=== PATIENT | male | born 2000 | race Caucasian/White ===

== ENCOUNTER 2022-05-16 20:23 | Inpatient (IN) ==
[2022-05-16 20:45] LABS: Basophils # (auto) 0.03 K/uL (0-0.2); Basophils % (auto) 0.4 %; Eosinophils # (auto) 0.05 K/uL (0-0.50); Eosinophils % (auto) 0.7 %; Hematocrit (blood only) 42.8 % (40.1-51.0); Hemoglobin 15.3 g/dl (14.0-18.0); Immature Granulocytes # (auto) 0.02 K/uL (0.00-0.02); Immature Granulocytes % (auto) 0.3 %; Lymphocytes # (auto) 2.75 K/uL (1.2-3.4); Lymphocytes % (auto) 37.5 %; Mean Corpuscular Hemoglobin 28.6 pg (25.0-34.0); Mean Corpuscular Hgb Conc 35.7 g/dL (32.0-36.0); Mean Platelet Volume 10.1 fL (9.4-12.4); Monocytes # (auto) 0.69 K/uL (0.24-0.82); Monocytes % (auto) 9.4 %; Neutrophils # (auto) 3.79 K/uL (1.4-6.5); Neutrophils % (auto) 51.7 %; Platelet Count 204 K/uL (130-400); RDW Coefficient of Variation 11.8 % (11.5-14.5); RDW Standard Deviation 33.9 fL (36.4-46.3); Red Blood Count 5.35 M/uL (4.63-6.08); White Blood Count 7.33 K/ul (4.8-10.8)
[2022-05-16 21:25] LABS: Albumin Globulin Ratio 1.9 (0.9-2); Albumin Level 4.9 gm/dl (3.4-5.0); BUN Creatinine Ratio 12.2 (10-20); Bilirubin,Total 1.2 mg/dl (0.2-1.0); Calcium 9.8 mg/dl (8.5-10.1); Creatinine Clr Calc Pharmacy 92.7 ml/min; Est GFR (African American) 103.4 ml/min; Est GFR (Non-African American) 89.2 ml/min; Globulin 2.6 gm/dl (2.5-4.0); Potassium 3.8 mmol/L (3.5-5.1); Total Protein 7.5 gm/dl (6.0-8.3)
--- NOTE | 2022-05-16 21:44 | Emergency Department Note ---
History of Present Illness General Chief complaint: Hyperglycemia Stated complaint: HIGH BLOOD SUGAR History of Present Illness This is a 21-year-old male presenting to the emergency department for evaluation of high blood sugar. The patient states that over the past 4 to 5 days he has had a tremendous amount of thirst and a large amount of urination compared to normal. The patient otherwise feels well, and mention this to his brother who is a type I diabetic. His brother was diagnosed at the age of 17 and does have a glucometer. Evidently this patient's glucose was greater than 600 on the glucometer, prompting his presentation to the ER. The patient is usually healthy and does not take medication on a regular basis. He did have some flulike symptoms about 2 weeks ago that seem to be improved. He does not have any lightheadedness, dizziness, chest pain, chest tightness, shortness of breath, or belly pain. Home Medications Medication Instructions Recorded Confirmed Type blood sugar diagnostic (OneTouch #100 ea 05/18/22 Rx Verio test strips) blood-glucose sensor (Dexcom G6 #3 ea 05/18/22 Rx Sensor device) blood-glucose transmitter (Dexcom #1 ea 05/18/22 Rx G6 Transmitter device) insulin aspart U-100 100 unit/mL 1 sliding scale dose subcut 05/18/22 Rx (3 mL) subcutaneous pen (Novolog USEASDIRECTD #15 mL Flexpen U-100 Insulin aspart) insulin glargine 100 unit/mL (3 20 unit (0.2 mL) subcut HS #15 mL 05/18/22 Rx mL) subcutaneous pen (Basaglar KwikPen U-100 Insulin) lancets 33 gauge (OneTouch Delica #100 ea 05/18/22 Rx Lancets) pen needle, diabetic 32 gauge x #100 ea 05/18/22 Rx 5/32" (Pen Needle) Allergies Allergy/AdvReac Type Severity Reaction Status Date / Time Fish Containing Products AdvReac Vomiting Verified 05/16/22 22:32 Past Med/Surg History Medical History Diabetes Surgical History No significant past surgical history Social History Smoking Status: Never smoker Hx Alcohol Use: Yes Hx Substance Use: No Preferred Language: Albanian Communication Ability: Effective Credit Card Analyst Required: No Beliefs That Will Affect Care: Adventist Adventist Beliefs: Religion- no blood transfusion Current Living Situation: Spouse Other Information That Helps Us Care for You: No Feels Safe at Home: Yes Safety Concerns: Feels Safe At This Time Assistive Devices: None Review of Systems A total of 10 systems reviewed and were otherwise negative Physical Exam Vital Signs Vital Signs - 24 hr 05/16/22 23:00 Pulse Rate [Finger] 78 Respiratory Rate 19 Respiratory Effort / Characteristics Non-Labored Spontaneous Respiratory Depth Normal Respiratory Pattern Regular Blood Pressure [Right Arm] 128/72 Blood Pressure Mean [Right Arm] 90 Pulse Oximetry 99 Oxygen Delivery Method Room Air VITALS: Vitals are noted on the nurse's note and reviewed by myself. Vital signs stable. GENERAL: Well-developed, well-nourished, white male, who is in no acute distress and resting comfortably. Patient is cooperative with the examination. HEAD: Normocephalic atraumatic. EARS: External ear normal. External auditory canals clear, tympanic membranes pearly graham without erythema or effusion bilaterally. EYES: Pupils equal round and reactive to light and accommodation. Conjunctivae without injection, sclerae without icterus. Extraocular movements intact. NOSE: Patent, turbinates without inflammation or discharge. MOUTH: Mucous membranes moist. Tonsils are not enlarged. Pharynx without erythema, blood, or exudate. Uvula midline. Airway patent. NECK: Supple without nuchal rigidity. No lymphadenopathy. No thyromegaly. Cervical spine is nontender. HEART: Regular rate and rhythm without murmurs gallops or rubs. LUNGS: Clear to auscultation bilaterally without wheezes, rales or rhonchi. No retractions or accessory muscle use. ABDOMEN: Positive normal bowel sounds x 4. Soft, nontender, without masses or organomegaly. No guarding or rebound tenderness. Course Administered Medications Discontinued Medications Enoxaparin Sodium (Enoxaparin Inj 30 Mg/0.3 Ml Syr) 30 mg SQ QAM [facility] Stop: 06/16/22 08:59 Last Admin: 05/18/22 08:53 Dose: 30 mg Documented By: Admin: 05/17/22 08:40 Dose: 30 mg Documented By: TORI Sodium Chloride (Nss 1000ml) 1,000 mls @ 999 mls/hr IV .[id number] BE Stop: 05/16/22 23:28 Last Infusion: 05/17/22 00:36 Dose: 0 mls/hr Documented By: Admin: 05/16/22 23:09 Dose: 999 mls/hr Documented By: Infusion: 05/16/22 23:00 Dose: 0 mls/hr Documented By: Admin: 05/16/22 21:55 Dose: 999 mls/hr Documented By: EDU Lactated Ringer's (Lr) 1,000 mls @ 80 mls/hr IV .[id number] ONE Stop: 05/17/22 10:28 Last Infusion: 05/17/22 12:03 Dose: 0 mls/hr Documented By: Admin: 05/17/22 00:36 Dose: 80 mls/hr Documented By: EDU Insulin Aspart (Insulin Aspart Per Unit) 0 units SC ACHS BE Stop: 06/15/22 21:59 Last Admin: 05/18/22 13:05 Dose: 9 units Documented By: TORI Co-signed By: VAISHALI Admin: 05/18/22 08:50 Dose: 7 units Documented By: TORI Co-signed By: AGNES Admin: 05/17/22 21:03 Dose: 2 units Documented By: DEONDRE Co-signed By: LESTER Admin: 05/17/22 18:12 Dose: 5 units Documented By: TORI Co-signed By: AGNES Admin: 05/17/22 12:39 Dose: 7 units Documented By: TORI Co-signed By: HAILEY Admin: 05/17/22 08:39 Dose: 3 units Documented By: TORI Co-signed By: HAILEY Admin: 05/16/22 23:14 Dose: 7 units Documented By: EDU Co-signed By: CHRISTINA Insulin Glargine (Lantus Per Unit Charge) 30 units SQ NOW STA Stop: 05/16/22 21:59 Last Admin: 05/16/22 22:21 Dose: 30 units Documented By: EDU Co-signed By: RE Insulin Glargine (Lantus Per Unit Charge) 0 units SQ HS BE; Protocol Stop: 06/16/22 20:59 Last Admin: 05/17/22 21:04 Dose: 20 units Documented By: DEONDRE Co-signed By: LESTER Potassium Chloride (Potassium Chloride Crtab 20 Meq Tabcr) 40 meq PO ONE ONE Stop: 05/17/22 08:24 Last Admin: 05/17/22 08:39 Dose: 40 meq Documented By: TORI Medical Decision Making Differential Diagnosis Differential includes hyperglycemia, diabetes, acute coronary syndrome, myocardial infarction, CVA, TIA, anemia, infection, pneumonia, UTI, pyelonephritis, poor nutrition, dehydration, electrolyte disturbance,hypoglycemia. Laboratory Data Result diagrams: 05/17/22 06:53 05/18/22 08:26 Lab Results 05/16/22 05/16/22 05/16/22 Range/Units 20:28 20:36 20:36 WBC 7.33 (4.8-10.8) K/ul RBC 5.35 (4.63-6.08) M/uL Hgb 15.3 (14.0-18.0) g/dl Hct 42.8 (40.1-51.0) % MCV 80.0 (80.0-100.0) fL MCH 28.6 (25.0-34.0) pg MCHC 35.7 (32.0-36.0) g/dL RDW Std Deviation 33.9 L (36.4-46.3) fL RDW Coeff of Minal 11.8 (11.5-14.5) % Plt Count 204 (130-400) K/uL MPV 10.1 (9.4-12.4) fL Immature Gran % (Auto) 0.3 % Neut % (Auto) 51.7 % Lymph % (Auto) 37.5 % [place] % (Auto) 9.4 % Eos % (Auto) 0.7 % Baso % (Auto) 0.4 % Neut # (Auto) 3.79 (1.4-6.5) K/uL Lymph # (Auto) 2.75 (1.2-3.4) K/uL [place] # (Auto) 0.69 (0.24-0.82) K/uL Eos # (Auto) 0.05 (0-0.50) K/uL Baso # (Auto) 0.03 (0-0.2) K/uL Immature Gran # (Auto) 0.02 (0.00-0.02) K/uL VBG pH (7.36-7.41) VBG pCO2 (38-50) mmHg VBG pO2 mmHg VBG HCO3 mmol/L VBG O2 Saturation % VBG Base Excess mEq/L Sodium 130 L (136-145) mmol/L Potassium 3.8 (3.5-5.1) mmol/L Chloride 94 L (98-107) mmol/L Carbon Dioxide 28 (21-32) mmol/L Anion Gap 8 (3-11) BUN 14 (6-23) mg/dl Creatinine 1.15 (0.6-1.4) mg/dl Est Cr Clr Drug Dosing 92.7 ml/min Est GFR ( Amer) 103.4 ml/min Est GFR (Non-Af Amer) 89.2 ml/min BUN/Creatinine Ratio 12.2 (10-20) Glucose 541 H* (70-99(Fasting)) mg/dl POC Glucose 506 H* (70-99) mg/dl Estimat Average Glucose mg/dl Hemoglobin A1c (4.5-5.6) % Osmolality (280-300) mOsm/kg Calcium 9.8 (8.5-10.1) mg/dl Magnesium 2.2 (1.7-2.4) mg/dl Total Bilirubin 1.2 H (0.2-1.0) mg/dl AST 13 (13-39) U/L ALT 15 (7-52) U/L Alkaline Phosphatase 80 (34-104) U/L Total Protein 7.5 (6.0-8.3) gm/dl Albumin 4.9 (3.4-5.0) gm/dl Globulin 2.6 (2.5-4.0) gm/dl Albumin/Globulin Ratio 1.9 (0.9-2) Urine Color Urine Appearance (Clear) Urine pH (4.5-7.5) Ur Specific [place] (1.000-1.030) Urine Protein (Negative) Urine Glucose (UA) (Negative) Urine Ketones (Negative) Urine Blood (Negative) Urine Nitrite (Negative) Urine Bilirubin (Negative) Urine Urobilinogen (Negative) Ur Leukocyte Esterase (Negative) SARS-CoV-2, RNA, NAAT (NEGATIVE) 05/16/22 05/16/22 05/16/22 Range/Units 20:36 20:36 21:16 WBC (4.8-10.8) K/ul RBC (4.63-6.08) M/uL Hgb (14.0-18.0) g/dl Hct (40.1-51.0) % MCV (80.0-100.0) fL MCH (25.0-34.0) pg MCHC (32.0-36.0) g/dL RDW Std Deviation (36.4-46.3) fL RDW Coeff of Minal (11.5-14.5) % Plt Count (130-400) K/uL MPV (9.4-12.4) fL Immature Gran % (Auto) % Neut % (Auto) % Lymph % (Auto) % [place] % (Auto) % Eos % (Auto) % Baso % (Auto) % Neut # (Auto) (1.4-6.5) K/uL Lymph # (Auto) (1.2-3.4) K/uL [place] # (Auto) (0.24-0.82) K/uL Eos # (Auto) (0-0.50) K/uL Baso # (Auto) (0-0.2) K/uL Immature Gran # (Auto) (0.00-0.02) K/uL VBG pH (7.36-7.41) VBG pCO2 (38-50) mmHg VBG pO2 mmHg VBG HCO3 mmol/L VBG O2 Saturation % VBG Base Excess mEq/L Sodium (136-145) mmol/L Potassium (3.5-5.1) mmol/L Chloride (98-107) mmol/L Carbon Dioxide (21-32) mmol/L Anion Gap (3-11) BUN (6-23) mg/dl Creatinine (0.6-1.4) mg/dl Est Cr Clr Drug Dosing ml/min Est GFR ( Amer) ml/min Est GFR (Non-Af Amer) ml/min BUN/Creatinine Ratio (10-20) Glucose (70-99(Fasting)) mg/dl POC Glucose (70-99) mg/dl Estimat Average Glucose 206 mg/dl Hemoglobin A1c 8.8 H (4.5-5.6) % Osmolality 300 (280-300) mOsm/kg Calcium (8.5-10.1) mg/dl Magnesium (1.7-2.4) mg/dl Total Bilirubin (0.2-1.0) mg/dl AST (13-39) U/L ALT (7-52) U/L Alkaline Phosphatase (34-104) U/L Total Protein (6.0-8.3) gm/dl Albumin (3.4-5.0) gm/dl Globulin (2.5-4.0) gm/dl Albumin/Globulin Ratio (0.9-2) Urine Color Yellow Urine Appearance Clear (Clear) Urine pH 6.5 (4.5-7.5) Ur Specific [place] 1.045 H (1.000-1.030) Urine Protein Negative (Negative) Urine Glucose (UA) 3+ H (Negative) Urine Ketones 1+ H (Negative) Urine Blood Negative (Negative) Urine Nitrite Negative (Negative) Urine Bilirubin Negative (Negative) Urine Urobilinogen Negative (Negative) Ur Leukocyte Esterase Negative (Negative) SARS-CoV-2, RNA, NAAT (NEGATIVE) 05/16/22 05/16/22 05/16/22 Range/Units 21:44 21:45 21:53 WBC (4.8-10.8) K/ul RBC (4.63-6.08) M/uL Hgb (14.0-18.0) g/dl Hct (40.1-51.0) % MCV (80.0-100.0) fL MCH (25.0-34.0) pg MCHC (32.0-36.0) g/dL RDW Std Deviation (36.4-46.3) fL RDW Coeff of Minal (11.5-14.5) % Plt Count (130-400) K/uL MPV (9.4-12.4) fL Immature Gran % (Auto) % Neut % (Auto) % Lymph % (Auto) % [place] % (Auto) % Eos % (Auto) % Baso % (Auto) % Neut # (Auto) (1.4-6.5) K/uL Lymph # (Auto) (1.2-3.4) K/uL [place] # (Auto) (0.24-0.82) K/uL Eos # (Auto) (0-0.50) K/uL Baso # (Auto) (0-0.2) K/uL Immature Gran # (Auto) (0.00-0.02) K/uL VBG pH 7.37 (7.36-7.41) VBG pCO2 49 (38-50) mmHg VBG pO2 30 mmHg VBG HCO3 28 mmol/L VBG O2 Saturation < 60.0 % VBG Base Excess 2.2 mEq/L Sodium (136-145) mmol/L Potassium (3.5-5.1) mmol/L Chloride (98-107) mmol/L Carbon Dioxide (21-32) mmol/L Anion Gap (3-11) BUN (6-23) mg/dl Creatinine (0.6-1.4) mg/dl Est Cr Clr Drug Dosing ml/min Est GFR ( Amer) ml/min Est GFR (Non-Af Amer) ml/min BUN/Creatinine Ratio (10-20) Glucose (70-99(Fasting)) mg/dl POC Glucose 399 H* (70-99) mg/dl Estimat Average Glucose mg/dl Hemoglobin A1c (4.5-5.6) % Osmolality (280-300) mOsm/kg Calcium (8.5-10.1) mg/dl Magnesium (1.7-2.4) mg/dl Total Bilirubin (0.2-1.0) mg/dl AST (13-39) U/L ALT (7-52) U/L Alkaline Phosphatase (34-104) U/L Total Protein (6.0-8.3) gm/dl Albumin (3.4-5.0) gm/dl Globulin (2.5-4.0) gm/dl Albumin/Globulin Ratio (0.9-2) Urine Color Urine Appearance (Clear) Urine pH (4.5-7.5) Ur Specific [place] (1.000-1.030) Urine Protein (Negative) Urine Glucose (UA) (Negative) Urine Ketones (Negative) Urine Blood (Negative) Urine Nitrite (Negative) Urine Bilirubin (Negative) Urine Urobilinogen (Negative) Ur Leukocyte Esterase (Negative) SARS-CoV-2, RNA, NAAT NEGATIVE (NEGATIVE) 05/16/22 Range/Units 23:01 WBC (4.8-10.8) K/ul RBC (4.63-6.08) M/uL Hgb (14.0-18.0) g/dl Hct (40.1-51.0) % MCV (80.0-100.0) fL MCH (25.0-34.0) pg MCHC (32.0-36.0) g/dL RDW Std Deviation (36.4-46.3) fL RDW Coeff of Minal (11.5-14.5) % Plt Count (130-400) K/uL MPV (9.4-12.4) fL Immature Gran % (Auto) % Neut % (Auto) % Lymph % (Auto) % [place] % (Auto) % Eos % (Auto) % Baso % (Auto) % Neut # (Auto) (1.4-6.5) K/uL Lymph # (Auto) (1.2-3.4) K/uL [place] # (Auto) (0.24-0.82) K/uL Eos # (Auto) (0-0.50) K/uL Baso # (Auto) (0-0.2) K/uL Immature Gran # (Auto) (0.00-0.02) K/uL VBG pH (7.36-7.41) VBG pCO2 (38-50) mmHg VBG pO2 mmHg VBG HCO3 mmol/L VBG O2 Saturation % VBG Base Excess mEq/L Sodium (136-145) mmol/L Potassium (3.5-5.1) mmol/L Chloride (98-107) mmol/L Carbon Dioxide (21-32) mmol/L Anion Gap (3-11) BUN (6-23) mg/dl Creatinine (0.6-1.4) mg/dl Est Cr Clr Drug Dosing ml/min Est GFR ( Amer) ml/min Est GFR (Non-Af Amer) ml/min BUN/Creatinine Ratio (10-20) Glucose (70-99(Fasting)) mg/dl POC Glucose 313 H* (70-99) mg/dl Estimat Average Glucose mg/dl Hemoglobin A1c (4.5-5.6) % Osmolality (280-300) mOsm/kg Calcium (8.5-10.1) mg/dl Magnesium (1.7-2.4) mg/dl Total Bilirubin (0.2-1.0) mg/dl AST (13-39) U/L ALT (7-52) U/L Alkaline Phosphatase (34-104) U/L Total Protein (6.0-8.3) gm/dl Albumin (3.4-5.0) gm/dl Globulin (2.5-4.0) gm/dl Albumin/Globulin Ratio (0.9-2) Urine Color Urine Appearance (Clear) Urine pH (4.5-7.5) Ur Specific [place] (1.000-1.030) Urine Protein (Negative) Urine Glucose (UA) (Negative) Urine Ketones (Negative) Urine Blood (Negative) Urine Nitrite (Negative) Urine Bilirubin (Negative) Urine Urobilinogen (Negative) Ur Leukocyte Esterase (Negative) SARS-CoV-2, RNA, NAAT (NEGATIVE) Imaging Data Radiologist's Impression: Chest X-Ray 05/16/22 21:59 XR chest 1V portable HISTORY: Hyperglycemia. hyponatremia COMPARISON: None. FINDINGS: The lungs are clear. Cardiac silhouette is normal in size. No pleural effusions. No pneumothorax. IMPRESSION: No acute process. ACT 112: Negative or not required by law. Electronically signed by: Krishna Vergara M.D. 05/17/2022 8:06 AM [facility] Narrative Physical exam and history were performed. Nursing notes, EMR, and Medication List were personally reviewed. Patient appears to have elevated blood sugar on outpatient glucometer reading. [id number] glucose performed here in the ER is 506. IV access was established and labs were obtained. Patient was hydrated with 3 L normal s duncan. An order was placed for continuous cardiac monitoring. The monitor shows a rate of 79 with normal sinus rhythm. Patient's blood work is as above and was reviewed. He does not have a signifi cantly elevated white blood cell count, gross anemia, bandemia, or significant electrolyte imbalance. Lab glucose remains over 500. COVID was performed and negative. Transaminases are not diagnostic. Urine is with 3+ glucose. The patient does not appear acidotic on VBG. Overall the patient does not appear well for discharge home. I did discuss the case with the on-call hospitalist. They will initiate treatment and monitor in the hospital. Please see their dictation for further patient course, plan, disposition. The chart was completed utilizing [employer] Voice Recognition Software. Grammatical errors, random word insertions, pronoun errors, and incomplete sentences are an occasional consequence of this system due to software limitations, ambient noise, and hardware issues. Any formal questions or concerns about the content, text, or information contained within the body of this dictation should be directly addressed to the provider for clarification. . Impression & Plan Hyperglycemia, Diabetes Discharge Plan Visit Data Chief Complaint: Hyperglycemia Stated Complaint: HIGH BLOOD SUGAR ED Provider: Kwesi Mcdaniels ED Midlevel Provider: Primo Wylie Discharge Problem: Hyperglycemia, Diabetes Patient Disposition: Admitted As Inpatient Condition: Fair Discharge Instructions Interventions: ED Discharge Assessment Last Done: 05/17/22 00:59
[2022-05-16 21:48] LABS: Magnesium 2.2 mg/dl (1.7-2.4)
[2022-05-16 21:53] LABS: Base Excess VBG 2.2 mEq/L; HCO3 VBG 28 mmol/L; Oxygen Saturation VBG < 60.0 %; PCO2 VBG 49 mmHg (38-50); PO2 VBG 30 mmHg; pH VBG 7.37 (7.36-7.41)
[2022-05-16] MEDS: SODIUM CHLORIDE 0.9% 1000ML 1,000 ML IV SCH ×2 (21:55→23:09)
[2022-05-16] MEDS ORDERED: LANTUS PER UNIT CHARGE SQ STA (21:58)
[2022-05-16] MEDS ORDERED: LACTATED RINGER'S 1,000 ML IV ONE (21:59)
[2022-05-16] MEDS ORDERED: GLUCAGON FOR INJ 1 MG VIAL SQ PRN (22:00)
[2022-05-16] MEDS ORDERED: DEXTROSE 50% 50 ML SYRINGE IV PRN (22:00)
[2022-05-16] MEDS ORDERED: CARBOHYDRATES FOR HYPOGLYCEMIA PO PRN (22:00)
[2022-05-16] MEDS ORDERED: GLUCOSE 10 TAB/TUBE PO PRN (22:00)
[2022-05-16] MEDS ORDERED: GLUCOSE 40% GEL 15 GM TUBE PO PRN (22:00)
[2022-05-16 22:20] LABS: Appearance Urine Clear (Clear); Bilirubin Urine Negative (Negative); Blood Urine Negative (Negative); Color Urine Yellow; Glucose Urine UA 3+ (Negative); Ketones Urine 1+ (Negative); Leukocyte Esterase Urine Negative (Negative); Nitrite Urine Negative (Negative); Protein Urine Negative (Negative); Specific Gravity Urine 1.045 (1.000-1.030); Urobilinogen Urine Negative (Negative); pH Urine 6.5 (4.5-7.5)
[2022-05-16] MEDS: INSULIN ASPART PER UNIT SC SCH (23:14)
--- NOTE | 2022-05-16 23:57 | History & Physical Report ---
Date of Service May 16, 2022 Assessment & Plan (1) Hyperglycemia: Plan: New diagnosis of DM possible JUANCHO given patient's age GMF Basal bolus insulin, ISS BG goal 1 10-1 40, carb count coverage Follow hemoglobin A1c result May benefit from Pharmacy glycemic control consultation Outpatient Endocrinology consultation Re: New onset DM in in a young adult patient DM education DVT prophylaxis per Lovenox subcu Full code Text document was generated using [employer] voice recognition software. It may contain grammatical or spelling errors. Kindly contact undersigned for clarification of any documentation item in question. History of Present Illness Chief Complaint: Hyperglycemia Primary Care Provider: Kishore Bush DO History obtained from patient, family, and records. No significant medical history. 1 week history of polydipsia and polyuria symptoms. No chest pain, no shortness of breath. Increasing weakness. Blood sugar checked by patient's mother at home today. Home BG 600s. Patient brought to the ER for evaluation. 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 Allergies Allergy/AdvReac Type Severity Reaction Status Date / Time Fish Containing Products AdvReac Vomiting Verified 05/16/22 22:32 Home Medications Medication Instructions Recorded Confirmed Type No Known Home Medications 05/16/22 05/16/22 History Past Med/Surg History Medical History Diabetes Surgical History No significant past surgical history Social History Smoking Status: Never smoker Hx Alcohol Use: Yes Hx Substance Use: No Preferred Language: Fijian Communication Ability: Effective Cafeteria Team Leader Required: No Beliefs That Will Affect Care: Christian Christian Beliefs: Buddhist- no blood transfusion Current Living Situation: Spouse Other Information That Helps Us Care for You: No Feels Safe at Home: Yes Safety Concerns: Feels Safe At This Time Assistive Devices: None Review of Systems Review of Systems: As per HPI, all other systems reviewed and negative Physical Exam Physical Exam: GENERAL: Comfortable, pleasant, no respiratory distress SKIN: Normal color, warm HEENT: [place] palpebral conjunctivae, no ptosis, dry buccal mucosa NECK : Supple, no tenderness CHEST : CTA, no tenderness HEART : RRR, no obvious murmurs ABDOMEN:no distention, nontender EXTREMITIES : No LE swelling/tenderness, no other conspicuous deformities noted NEUROLOGIC : Coherent, no facial asymmetry, no other gross focality Results & Data Results & Data ([facility]) Vital Signs (Past 12 Hours) Vital Signs Temp Pulse Pulse Resp BP BP Pulse Ox 05/16/22 23:00 78 19 128/72 99 05/16/22 21:51 100 05/16/22 21:18 79 16 132/80 98 05/16/22 20:24 36.5 C 88 18 132/74 98 O2 Del Method 05/16/22 23:00 Room Air 05/16/22 21:51 Room Air 05/16/22 21:18 Room Air 05/16/22 20:24 Room Air Laboratory Results Laboratory Results WBC 7.33 K/ul (4.8-10.8) 05/16/22 20:36 RBC 5.35 M/uL (4.63-6.08) 05/16/22 20:36 Hgb 15.3 g/dl (14.0-18.0) 05/16/22 20:36 Hct 42.8 % (40.1-51.0) 05/16/22 20:36 MCV 80.0 fL (80.0-100.0) 05/16/22 20:36 MCH 28.6 pg (25.0-34.0) 05/16/22 20:36 MCHC 35.7 g/dL (32.0-36.0) 05/16/22 20:36 RDW Std Deviation 33.9 fL (36.4-46.3) L 05/16/22 20:36 RDW Coeff of Minal 11.8 % (11.5-14.5) 05/16/22 20:36 Plt Count 204 K/uL (130-400) 05/16/22 20:36 MPV 10.1 fL (9.4-12.4) 05/16/22 20:36 Immature Gran % (Auto) 0.3 % 05/16/22 20:36 Neut % (Auto) 51.7 % 05/16/22 20:36 Lymph % (Auto) 37.5 % 05/16/22 20:36 [place] % (Auto) 9.4 % 05/16/22 20:36 Eos % (Auto) 0.7 % 05/16/22 20:36 Baso % (Auto) 0.4 % 05/16/22 20:36 Neut # (Auto) 3.79 K/uL (1.4-6.5) 05/16/22 20:36 Lymph # (Auto) 2.75 K/uL (1.2-3.4) 05/16/22 20:36 [place] # (Auto) 0.69 K/uL (0.24-0.82) 05/16/22 20:36 Eos # (Auto) 0.05 K/uL (0-0.50) 05/16/22 20:36 Baso # (Auto) 0.03 K/uL (0-0.2) 05/16/22 20:36 Immature Gran # (Auto) 0.02 K/uL (0.00-0.02) 05/16/22 20:36 VBG pH 7.37 (7.36-7.41) 05/16/22 21:44 VBG pCO2 49 mmHg (38-50) 05/16/22 21:44 VBG pO2 30 mmHg 05/16/22 21:44 VBG HCO3 28 mmol/L 05/16/22 21:44 VBG O2 Saturation < 60.0 % 05/16/22 21:44 VBG Base Excess 2.2 mEq/L 05/16/22 21:44 Sodium 130 mmol/L (136-145) L 05/16/22 20:36 Potassium 3.8 mmol/L (3.5-5.1) 05/16/22 20:36 Chloride 94 mmol/L (98-107) L 05/16/22 20:36 Carbon Dioxide 28 mmol/L (21-32) 05/16/22 20:36 Anion Gap 8 (3-11) 05/16/22 20:36 BUN 14 mg/dl (6-23) 05/16/22 20:36 Creatinine 1.15 mg/dl (0.6-1.4) 05/16/22 20:36 Est Cr Clr Drug Dosing 92.7 ml/min 05/16/22 20:36 Est GFR ( Amer) 103.4 ml/min 05/16/22 20:36 Est GFR (Non-Af Amer) 89.2 ml/min 05/16/22 20:36 BUN/Creatinine Ratio 12.2 (10-20) 05/16/22 20:36 Glucose 541 mg/dl (70-99(Fasting)) H* 05/16/22 20:36 POC Glucose 313 mg/dl (70-99) H* 05/16/22 23:01 Osmolality 300 mOsm/kg (280-300) 05/16/22 20:36 Calcium 9.8 mg/dl (8.5-10.1) 05/16/22 20:36 Magnesium 2.2 mg/dl (1.7-2.4) 05/16/22 20:36 Total Bilirubin 1.2 mg/dl (0.2-1.0) H 05/16/22 20:36 AST 13 U/L (13-39) 05/16/22 20:36 ALT 15 U/L (7-52) 05/16/22 20:36 Alkaline Phosphatase 80 U/L (34-104) 05/16/22 20:36 Total Protein 7.5 gm/dl (6.0-8.3) 05/16/22 20:36 Albumin 4.9 gm/dl (3.4-5.0) 05/16/22 20:36 Globulin 2.6 gm/dl (2.5-4.0) 05/16/22 20:36 Albumin/Globulin Ratio 1.9 (0.9-2) 05/16/22 20:36 Urine Color Yellow 05/16/22 21:16 Urine Appearance Clear (Clear) 05/16/22 21:16 Urine pH 6.5 (4.5-7.5) 05/16/22 21:16 Ur Specific [place] 1.045 (1.000-1.030) H 05/16/22 21:16 Urine Protein Negative (Negative) 05/16/22 21:16 Urine Glucose (UA) 3+ (Negative) H 05/16/22 21:16 Urine Ketones 1+ (Negative) H 05/16/22 21:16 Urine Blood Negative (Negative) 05/16/22 21:16 Urine Nitrite Negative (Negative) 05/16/22 21:16 Urine Bilirubin Negative (Negative) 05/16/22 21:16 Urine Urobilinogen Negative (Negative) 05/16/22 21:16 Ur Leukocyte Esterase Negative (Negative) 05/16/22 21:16 SARS-CoV-2, RNA, NAAT NEGATIVE (NEGATIVE) 05/16/22 21:53 Diagnostic Findings EKG as per my interpretation :Rate 70, NSR, normal axis, no ischemia
[2022-05-17] MEDS ORDERED: ACETAMINOPHEN 325 MG TAB PO PRN (01:41)
[2022-05-17] MEDS ORDERED: PROMETHAZINE HCL 6.25 MG in SODIUM CHLORIDE 0.9% 50 ML IV PRN (01:41)
[2022-05-17 07:27] LABS: Basophils # (auto) 0.02 K/uL (0-0.2); Basophils % (auto) 0.3 %; Eosinophils # (auto) 0.06 K/uL (0-0.50); Eosinophils % (auto) 0.8 %; Hematocrit (blood only) 37.5 % (40.1-51.0); Hemoglobin 13.1 g/dl (14.0-18.0); Immature Granulocytes # (auto) 0.03 K/uL (0.00-0.02); Immature Granulocytes % (auto) 0.4 %; Lymphocytes # (auto) 2.42 K/uL (1.2-3.4); Lymphocytes % (auto) 31.1 %; Mean Corpuscular Hemoglobin 28.4 pg (25.0-34.0); Mean Corpuscular Hgb Conc 34.9 g/dL (32.0-36.0); Mean Corpuscular Volume 81.2 fL (80.0-100.0); Mean Platelet Volume 10.1 fL (9.4-12.4); Monocytes # (auto) 0.69 K/uL (0.24-0.82); Monocytes % (auto) 8.9 %; Neutrophils # (auto) 4.56 K/uL (1.4-6.5); Neutrophils % (auto) 58.5 %; Platelet Count 169 K/uL (130-400); RDW Coefficient of Variation 11.9 % (11.5-14.5); RDW Standard Deviation 34.5 fL (36.4-46.3); Red Blood Count 4.62 M/uL (4.63-6.08); White Blood Count 7.78 K/ul (4.8-10.8)
[2022-05-17 07:53] LABS: Anion Gap 4 (3-11); BUN Creatinine Ratio 15.5 (10-20); Blood Urea Nitrogen 11 mg/dl (6-23); Calcium 8.1 mg/dl (8.5-10.1); Carbon Dioxide 27 mmol/L (21-32); Chloride 109 mmol/L (98-107); Creatinine Clr Calc Pharmacy 156.5 ml/min; Est GFR (African American) > 150.0 ml/min; Est GFR (Non-African American) 132.3 ml/min; Glucose 87 mg/dl (70-99(Fasting)); Potassium 3.3 mmol/L (3.5-5.1); Sodium 140 mmol/L (136-145)
--- NOTE | 2022-05-17 08:08 | XRay Report ---
XR chest 1V portable HISTORY: Hyperglycemia. hyponatremia COMPARISON: None. FINDINGS: The lungs are clear. Cardiac silhouette is normal in size. No pleural effusions. No pneumot horax. IMPRESSION: No acute process. ACT 112: Negative or not required by law. Electronically signed by: Krishna Vergara M.D. 05/17/2022 8:06 AM
[2022-05-17] MEDS ORDERED: POTASSIUM CHLORIDE CRTAB 20 MEQ TABCR PO ONE (08:23)
[2022-05-17] MEDS ORDERED: PHARMACY GLYCEMIC MGMT CONSULT PRN (08:24)
[2022-05-17 08:27] LABS: Estimated Average Glucose 206 mg/dl; Hemoglobin A1C 8.8 % (4.5-5.6)
[2022-05-17] MEDS: INSULIN ASPART PER UNIT SC SCH ×4 (08:39→21:03)
[2022-05-17] MEDS: ENOXAPARIN INJ 30 MG/0.3 ML SYR SQ SCH (08:40)
--- NOTE | 2022-05-17 09:17 | Pharmacy Report ---
Pharmacy Glycemic Short Note 2 - Date of Service May 17, 2022 - Glycemic Short BSG Results (Last 24 hours): 05/16/22 05/16/22 05/16/22 20:28 20:36 21:45 Glucose 541 H* POC Glucose 506 H* 399 H* 05/16/22 05/16/22 05/17/22 23:01 23:59 01:18 Glucose POC Glucose 313 H* 237 H 118 H 05/17/22 05/17/22 06:53 08:12 Glucose 87 POC Glucose 93 OUTPATIENT ANTIDIABETIC REGIMEN: * N/A - new diagnosis HbA1c: 8.8% (05/16/22) ASSESSMENT: * MADDIE is a 21 year old male who presented to ED last evening (05/16/22) with ~1 week history of polyuria and polydipsia. BSG greater than 600 mg/dL on home check. * Family history of T1DM, brother diagnosed at age 17. No other significant PMH. Patient takes no medications. * BSG of 506 mg/dL on initial hospital POC check, no signs of DKA - given 30 units of Lantus and 7 units of Novolog * BSGs trended down quickly 313 ->118 -> 93 mg/dL * Will assume T1DM for initial dosing, TDD of insulin generally 0.4-1 unit/kg * Given significant decrease in BSGs overnight, assuming initial basal dose was too aggressive, will decrease today PLAN FOR INPATIENT GLYCEMIC CONTROL: * Basal insulin * Lantus 10-20 units SC HS * Reassess in AM - consider BID Lantus if HS dose inadequate * Bolus insulin * NovoLog per scale ACHS or Q6hrs while NPO * Goal Range: Low 110 mg/dL - High 140 mg/dL * Correction Factor: 45 mg/dL/unit * Nutritional / Prandial insulin per carb ratio of 1 unit per 12 grams CHO consumed
--- NOTE | 2022-05-17 13:44 | Hospitalist Progress Note ---
Date of Service May 17, 2022 Assessment & Plan (1) Hyperglycemia: Plan: Diabetes mellitus--New Diagnosis Likely Type I DM Family H/O type 1 diabetes mellitus, Ruthann's thyroiditis HbA1C:8.8 Glutamic acid decarboxylase 65, IA 2 Ab, Insulin Ab, ZnT8 Ab--pending Continue insulin as per protocol Monitor BGs family educator, Glycemic Pharmacist consulted Advised to follow-up with endocrinology as outpatient DVT Px: [place] SQ Code Status Full code Admission and Anticipated Discharge Date Admission Date: May 16, 2022 Subjective Patient is seen and examined at bedside Polydipsia, polyuria improved Denies any chest pain, shortness breath, dizziness, nausea, abdominal pain Offers no other complaints Review of Systems Review of Systems: All systems reviewed & are unremarkable except as noted in Subjective Physical Exam Physical Exam: Physical Exam: Vitals signs as noted above General Appearance:Thin, no apparent distress Head: normocephalic, Atraumatic Eyes: normal inspection, EOMI Neck: supple, Trachea midline Respiratory/Chest: Normal breath sounds, CTA, No accessory muscle use Cardiovascular: S1, S2, No murmur Abdomen/GI:Soft, Non tender, Bowel sounds present Extremities/Musculoskeletal:normal inspection, no edema Neurologic/Psych:AAOX3, grossly no focal neurological deficits Skin: normal color, warm Results & Data Results & Data ([facility]) Vital Signs (Past 12 Hours) Vital Signs Temp Pulse Resp BP Pulse Ox O2 Del Method 05/17/22 07:16 36.8 C 60 14 109/68 100 Room Air 05/17/22 01:45 36.6 C 72 18 132/81 100 Room Air Laboratory Results Short CBC 05/16/22 05/17/22 Range/Units 20:36 06:53 WBC 7.33 7.78 (4.8-10.8) K/ul Hgb 15.3 13.1 L (14.0-18.0) g/dl Hct 42.8 37.5 L (40.1-51.0) % Plt Count 204 169 (130-400) K/uL BMP 05/16/22 05/17/22 20:36 06:53 Sodium 130 L 140 D Potassium 3.8 3.3 L Chloride 94 L 109 H Carbon Dioxide 28 27 BUN 14 11 Creatinine 1.15 0.71 D Glucose 541 H* 87 Calcium 9.8 8.1 L Liver Function 05/16/22 Range/Units 20:36 Total Bilirubin 1.2 H (0.2-1.0) mg/dl AST 13 (13-39) U/L ALT 15 (7-52) U/L Alkaline Phosphatase 80 (34-104) U/L Albumin 4.9 (3.4-5.0) gm/dl Urine 05/16/22 Range/Units 21:16 Urine Color Yellow Urine Appearance Clear (Clear) Urine pH 6.5 (4.5-7.5) Ur Specific [place] 1.045 H (1.000-1.030) Urine Protein Negative (Negative) Urine Glucose (UA) 3+ H (Negative)
--- NOTE | 2022-05-17 14:26 | Electrocardiogram Report ---
Test Reason : Blood Pressure : / mmHG Vent. Rate : 071 BPM Atrial Rate : 071 BPM P-R Int : 126 ms QRS Dur : 090 ms QT Int : 400 ms P-R-T Axes : 108 087 051 degrees QTc Int : 434 ms Poor data quality, interpretation may be adversely affected Normal sinus rhythm with sinus arrhythmia Early repolarization Normal ECG No previous ECGs available Confirmed by Bennie Martinez ([id number]) on 05/17/2022 2:25:54 PM Referred By: REFERRED SELF Confirmed By:Bennie Martinez
[2022-05-17] MEDS ORDERED: LANTUS PER UNIT CHARGE SQ SCH ×2 (21:00)
[2022-05-18] MEDS: INSULIN ASPART PER UNIT SC SCH ×2 (08:50→13:05)
[2022-05-18] MEDS: ENOXAPARIN INJ 30 MG/0.3 ML SYR SQ SCH (08:53)
[2022-05-18 09:26] LABS: BUN Creatinine Ratio 14.9 (10-20); Calcium 9.3 mg/dl (8.5-10.1); Creatinine Clr Calc Pharmacy 127.8 ml/min; Est GFR (Non-African American) 121.7 ml/min; Potassium 4.1 mmol/L (3.5-5.1)
--- NOTE | 2022-05-18 13:30 | Hospitalist Progress Note ---
Date of Service May 18, 2022 Assessment & Plan (1) Hyperglycemia: Plan: Diabetes mellitus--New Diagnosis Likely Type I DM Family H/O type 1 diabetes mellitus, Ruthann's thyroiditis HbA1C:8.8 Glutamic acid decarboxylase 65, IA 2 Ab, Insulin Ab, ZnT8 Ab--pending Continue insulin as per protocol Monitor BGs Plan to discharge on insulin glargine 20 units at bedtime and NovoLog sliding scale Appreciate hospice educator, Glycemic Pharmacist Input Advised to follow-up with endocrinology as outpatient DVT Px: Lovenox SQ Code Status Full code Disposition Home Admission and Anticipated Discharge Date Admission Date: May 16, 2022 Subjective Patient is seen and examined at bedside Doing well today Polydipsia, polyuria resolved No new complaints Denies any chest pain, shortness breath, dizziness, nausea, abdominal pain Discussed with patient's family at bedside. Review of Systems Review of Systems: All systems reviewed & are unremarkable except as noted in Subjective Physical Exam Physical Exam: Physical Exam: Vitals signs as noted above General Appearance:Thin, no apparent distress Head: normocephalic, Atraumatic Eyes: normal inspection, EOMI Neck: supple, Trachea midline Respiratory/Chest: Normal breath sounds, CTA, No accessory muscle use Cardiovascular: S1, S2, No murmur Abdomen/GI:Soft, Non tender, Bowel sounds present Extremities/Musculoskeletal:normal inspection, no edema Neurologic/Psych:AAOX3, grossly no focal neurological deficits Skin: normal color, warm Results & Data Results & Data ([facility]) Vital Signs (Past 12 Hours) Vital Signs Temp Pulse Resp BP Pulse Ox 05/18/22 08:00 36.6 C 81 16 109/70 98 Laboratory Results [facility] 05/18/22 08:26 Sodium 139 Potassium 4.1 D Chloride 106 Carbon Dioxide 28 BUN 13 Creatinine 0.87 Glucose 152 H Calcium 9.3
--- NOTE | 2022-05-18 14:20 | Discharge Summary ---
Date of Service May 18, 2022 Admission HPI Per Admitting Provider History obtained from patient, family, and records. No significant medical history. 1 week history of polydipsia and polyuria symptoms. No chest pain, no shortness of breath. Increasing weakness. Blood sugar checked by patient's mother at home today. Home BG 600s. Patient brought to the ER for evaluation. 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 Admission Exam Per Admitting Provider Physical Exam Physical Exam: GENERAL: Comfortable, pleasant, no respiratory distress SKIN: Normal color, warm HEENT: [place] palpebral conjunctivae, no ptosis, dry buccal mucosa NECK : Supple, no tenderness CHEST : CTA, no tenderness HEART : RRR, no obvious murmurs ABDOMEN:no distention, nontender EXTREMITIES : No LE swelling/tenderness, no other conspicuous deformities noted NEUROLOGIC : Coherent, no facial asymmetry, no other gross focality Principal Diagnosis Diabetes Mellitus Discharge Data Allergies Allergy/AdvReac Type Severity Reaction Status Date / Time Fish Containing Products AdvReac Vomiting Verified 05/16/22 22:32 Consultations 05/16/22 21:54 ED Decision to Admit Stat Ordered Studies Laboratory Results WBC 7.78 K/ul (4.8-10.8) 05/17/22 06:53 RBC 4.62 M/uL (4.63-6.08) L 05/17/22 06:53 Hgb 13.1 g/dl (14.0-18.0) L 05/17/22 06:53 Hct 37.5 % (40.1-51.0) L 05/17/22 06:53 MCV 81.2 fL (80.0-100.0) 05/17/22 06:53 MCH 28.4 pg (25.0-34.0) 05/17/22 06:53 MCHC 34.9 g/dL (32.0-36.0) 05/17/22 06:53 RDW Std Deviation 34.5 fL (36.4-46.3) L 05/17/22 06:53 RDW Coeff of [place] 11.9 % (11.5-14.5) 05/17/22 06:53 Plt Count 169 K/uL (130-400) 05/17/22 06:53 MPV 10.1 fL (9.4-12.4) 05/17/22 06:53 Immature Gran % (Auto) 0.4 % 05/17/22 06:53 Neut % (Auto) 58.5 % 05/17/22 06:53 Lymph % (Auto) 31.1 % 05/17/22 06:53 [place] % (Auto) 8.9 % 05/17/22 06:53 Eos % (Auto) 0.8 % 05/17/22 06:53 Baso % (Auto) 0.3 % 05/17/22 06:53 Neut # (Auto) 4.56 K/uL (1.4-6.5) 05/17/22 06:53 Lymph # (Auto) 2.42 K/uL (1.2-3.4) 05/17/22 06:53 [place] # (Auto) 0.69 K/uL (0.24-0.82) 05/17/22 06:53 Eos # (Auto) 0.06 K/uL (0-0.50) 05/17/22 06:53 Baso # (Auto) 0.02 K/uL (0-0.2) 05/17/22 06:53 Immature Gran # (Auto) 0.03 K/uL (0.00-0.02) H 05/17/22 06:53 VBG pH 7.37 (7.36-7.41) 05/16/22 21:44 VBG pCO2 49 mmHg (38-50) 05/16/22 21:44 VBG pO2 30 mmHg 05/16/22 21:44 VBG HCO3 28 mmol/L 05/16/22 21:44 VBG O2 Saturation < 60.0 % 05/16/22 21:44 VBG Base Excess 2.2 mEq/L 05/16/22 21:44 Sodium 139 mmol/L (136-145) 05/18/22 08:26 Potassium 4.1 mmol/L (3.5-5.1) D 05/18/22 08:26 Chloride 106 mmol/L (98-107) 05/18/22 08:26 Carbon Dioxide 28 mmol/L (21-32) 05/18/22 08:26 Anion Gap 5 (3-11) 05/18/22 08:26 BUN 13 mg/dl (6-23) 05/18/22 08:26 Creatinine 0.87 mg/dl (0.6-1.4) 05/18/22 08:26 Est Cr Clr Drug Dosing 127.8 ml/min 05/18/22 08:26 Est GFR ( Amer) 141.0 ml/min 05/18/22 08:26 Est GFR (Non-Af Amer) 121.7 ml/min 05/18/22 08:26 BUN/Creatinine Ratio 14.9 (10-20) 05/18/22 08:26 Glucose 152 mg/dl (70-99(Fasting)) H 05/18/22 08:26 POC Glucose 216 mg/dl (70-99) H 05/18/22 11:50 Estimat Average Glucose 206 mg/dl 05/16/22 20:36 Hemoglobin A1c 8.8 % (4.5-5.6) H 05/16/22 20:36 Osmolality 300 mOsm/kg (280-300) 05/16/22 20:36 Calcium 9.3 mg/dl (8.5-10.1) 05/18/22 08:26 Magnesium 2.2 mg/dl (1.7-2.4) 05/16/22 20:36 Total Bilirubin 1.2 mg/dl (0.2-1.0) H 05/16/22 20:36 AST 13 U/L (13-39) 05/16/22 20:36 ALT 15 U/L (7-52) 05/16/22 20:36 Alkaline Phosphatase 80 U/L (34-104) 05/16/22 20:36 Total Protein 7.5 gm/dl (6.0-8.3) 05/16/22 20:36 Albumin 4.9 gm/dl (3.4-5.0) 05/16/22 20:36 Globulin 2.6 gm/dl (2.5-4.0) 05/16/22 20:36 Albumin/Globulin Ratio 1.9 (0.9-2) 05/16/22 20:36 TSH 1.898 uIu/ml (0.300-4.500) 05/17/22 06:53 Urine Color Yellow 05/16/22 21:16 Urine Appearance Clear (Clear) 05/16/22 21:16 Urine pH 6.5 (4.5-7.5) 05/16/22 21:16 Ur Specific [place] 1.045 (1.000-1.030) H 05/16/22 21:16 Urine Protein Negative (Negative) 05/16/22 21:16 Urine Glucose (UA) 3+ (Negative) H 05/16/22 21:16 Urine Ketones 1+ (Negative) H 05/16/22 21:16 Urine Blood Negative (Negative) 05/16/22 21:16 Urine Nitrite Negative (Negative) 05/16/22 21:16 Urine Bilirubin Negative (Negative) 05/16/22 21:16 Urine Urobilinogen Negative (Negative) 05/16/22 21:16 Ur Leukocyte Esterase Negative (Negative) 05/16/22 21:16 SARS-CoV-2, RNA, NAAT NEGATIVE (NEGATIVE) 05/16/22 21:53 Impressions Chest X-Ray 05/16/22 21:59 XR chest 1V portable HISTORY: Hyperglycemia. hyponatremia COMPARISON: None. FINDINGS: The lungs are clear. Cardiac silhouette is normal in size. No pleural effusions. No pneumothorax. IMPRESSION: No acute process. ACT 112: Negative or not required by law. Electronically signed by: Krishna Vergara M.D. 05/17/2022 8:06 AM Hospital Course (1) Hyperglycemia: Diabetes mellitus--New Diagnosis Likely Type I DM Family H/O type 1 diabetes mellitus, Ruthann's thyroiditis HbA1C:8.8 Glutamic acid decarboxylase 65, IA 2 Ab, Insulin Ab, ZnT8 Ab--pending Continue insulin as per protocol Monitor BGs Plan to discharge on insulin glargine 20 units at bedtime and NovoLog sliding scale Appreciate art educator, Glycemic Pharmacist Input Advised to follow-up with endocrinology as outpatient DVT Px: Lovenox SQ Code Status Full code Disposition Home Total Time Total Time Spent Total Time Spent (In Minutes): 48 minutes Discharge Plan Discharge Items Patient Disposition: Home - Self-Care Reason For Visit: HYPERGLYCEMIA Discharge Diagnosis: Diabetes Mellitus Condition on Discharge: Fair Activity: Per Instructions section Exercise/Sports: Gradually increase as tolerated Non-emergency contact: Primary Care Provider and Specialist Call non-emergency contact if: you have any medication questions, your symptoms worsen, your pain is concerning for you and you have a fever Follow-up/Referrals: Endocrinology [Other] (Dr Bush's office will make the referral that is needed to schedule with Dr Marisol Olivera, [facility] Endocrinology. Dr Buhs's office is aware of this referral need. ) Kishore Bush, [Primary Care Provider] - 05/22/22 2:30 pm Diet: Carb Count or DM1 Addtl Attending Provider Instructions: Follow-up with your primary care physician Dr. Bush on May 22, 2022 at 2:30 PM as scheduled Follow-up with your music professor Dr Marisol Olivera, [facility] Endocrinology as advised --Your Immunological work-up for determining type of diabetes is pending at the time of discharge. Follow-up with your physician for results. Seek immediate medical attention if your symptoms reoccur or worsen Please take all medications as instructed on discharge list below. Please call if you have any questions or problems. You can reach a [facility] hospitalist on duty at [facility] 24 hours a day by calling [phone] Insulin Instructions: --Take Insulin Glargine (Basaglar) 20 units subcutaneously at bedtime --Take Insulin Aspart as per sliding Scale below as recommended. Take Insulin Aspart (NovoLog) 1 unit for every 10 grams of carbohydrates + Correction Factor as below for Blood Glucose greater than 150. Blood Sugar Extra Novolog Coverage (Correction Factor) 70 99 Subtract 1 unit 100 150 No change 151 200 + 1 unit 201 250 + 2 units 251 300 + 3 units 301 350 + 4 units 351 400 + 5 units 401 450 + 6 units 451 500 + 7 units --- Your insulin dosage need to be adjusted depending on your blood glucose levels. Discussed with your physician for further recommendations. Pending Studies at Discharge: Yes Stand-Alone Forms: My [facility], Work/School Release, Smoking Cessation Medications and DC Order Prescriptions: New insulin glargine [Basaglar KwikPen U-100 Insulin] 100 unit/mL (3 mL) insulin pen 20 unit subcut HS Qty: 15 0RF insulin aspart U-100 [Novolog Flexpen U-100 Insulin] 100 unit/mL (3 mL) insulin pen 1 sliding scale dose subcut USEASDIRECTD Qty: 15 1RF (DME) pen needle, diabetic [Pen Needle] 32 gauge x 5/32" needle See Rx Instructions .Route Qty: 100 1RF Rx Instructions: Check glucose levels 5 times a day as directed (DME) OneTouch Verio test strips Strip See Rx Instructions .Route Qty: 100 1RF Rx Instructions: Check glucose levels 5 times a day as directed (DME) lancets [OneTouch Delica Lancets] 33 gauge misc See Rx Instructions .Route Qty: 100 1RF Rx Instructions: Check glucose levels 5 times a day as directed (DME) Dexcom G6 Transmitter Device See Rx Instructions .Route Qty: 1 0RF Rx Instructions: As directed (DME) Dexcom G6 Sensor Device See Rx Instructions .Route Qty: 3 0RF Rx Instructions: As directed Discharge Orders: Discharge Order (Routine); Ordered 05/18/22 Ordered By: Chon Boucher Admission Data Admit Date/Time: 05/16/22 23:58 Attending Provider: Chon Boucher Admit Provider: Juan Pressley Primary Care Provider: Kishore Bush Other Providers: Juan Pressley
[2022-05-18] MEDS ORDERED: LANTUS PER UNIT CHARGE SQ SCH (21:00)
[2022-05-27 19:02] LABS: Glutamic Acid Decarboxylase 65 <5 IU/mL (<5); Zinc Transporter 8 (ZnT8) Ab >500 U/mL (<15)
== END 2022-05-18 17:02 | disposition home or self-care (01) | DRG 639 ==
LOC: ED 20:23 → 3W 23:58
DX: Z83.3 Family history of diabetes mellitus; E10.65 Type 1 diabetes mellitus with hyperglycemia; Z91.018 Allergy to other foods; Z83.49 Family history of other endocrine, nutritional and metabolic diseases